=== PATIENT | male | born 1930 | race Caucasian/White ===

== ENCOUNTER 2019-01-02 06:22 | Inpatient (IN) | payer MEDICARE, BC ==
[2019-01-02] MEDS ORDERED: HEPARIN SODIUM,PORCINE 5,000 UNIT/ML 1 ML VIAL IV PRN (06:28)
[2019-01-02] MEDS ORDERED: AMIODARONE 360 MG in DEXTROSE 5% IN WATER 200 ML IV ONE ×2 (07:00)
[2019-01-02] MEDS: HEPARIN SOD,PORK IN 0.45% NACL 25,000 UNIT in 0.45% NACL 1 250ML.BAG IV SCH (07:02)
[2019-01-02 07:04] LABS: HCT 37.8 % (39.0-53.0); HGB 12.4 gm/dL (13.0-17.5); MCH 35.9 pg (25.0-35.0); MCHC 32.7 g/dL (31.0-37.0); MCV 109.8 fL (80.0-100.0); Macrocytosis Marked; Mean Platelet Volume 8.6; Platelet Count 148 k/uL (150-450); RBC 3.45 m/uL (4.30-5.90); RDW 14.7 % (11.5-15.5); WBC 15.4 k/uL (3.8-10.6)
--- NOTE | 2019-01-02 07:04 | ED ---
Chest Pain HPI - General Stated Complaint: Cardiac Transfer Time Seen by Provider: 01/02/19 06:26 - History of Present Illness Initial Comments: Doug is an 88-year-old gentleman who presents to the emergency department today via ambulance as a transfer from an outside facility. Patient presented to outside hospital with a complaint of chest pain and difficulty breathing. Upon assessment he was found to be in atrial fibrillation and RVR with heart r ate in the 130s, patient was noted to be mildly hypotensive he was initially started on Cardizem however his blood pressure decreased and decision was made to treat with fluids she was in giving calcium initiated amiodarone drip and given digoxin. Patient's heart rate decreased to the 80s to 100s his pressure remained somewhat soft but he is chest pain-free breathing better. Decision was made to transfer patient to our hospital for evaluation by his assembler lay ups. - Related Data Allergies Allergy/AdvReac Type Severity Reaction Status Date / Time No Known Allergies Allergy Verified 01/02/19 06:45 Review of Systems ROS Statement: Those systems with pertinent positive or pertinent negative responses have been documented in the HPI. ROS Other: All systems not noted in ROS Statement are negative. EKG Findings - EKG Comments: EKG Findings:: EKG obtained at 634am - rate 93, rhythm afib, normal axis, normal intervals, QRS 90, QTc 420, no acute ST elevations or depressions. No ischemia or infarction. General Exam - General Exam Comments Initial Comments: Physical Exam GENERAL: Patient is well-developed and well-nourished. Patient is nontoxic and well-hydrated and is in no distress. HENT: Normocephalic, Atraumatic. EYES: PERRL, EOMI PULMONARY: Unlabored respirations. CARDIOVASCULAR: Irregularly irregular ABDOMEN: Soft and nontender with normal bowel sounds. SKIN: Multiple bruises in multiple stages of healing over all extremities : Deferred NEUROLOGIC: Patient is alert and oriented x3. Moving all extremities spontaneously Very hard of hearing MUSCULOSKELETAL: Normal extremities with adequate strength and full range of motion. No lower extremity swelling or edema. No calf tenderness. PSYCHIATRIC: Normal psychiatric evaluation Course Vital Signs 01/02/19 06:53 Temperature 98.1 F Pulse Rate 91 Respiratory 16 Rate Blood Pressure 135/97 O2 Sat by Pulse 100 Oximetry Chest Pain [facility] Patient care was discussed with Transferring physician - new onset afib, on amiodarone Patient arrived, hemodynamically stable EKG Afib, no acute ST elevations or depressions Repeat labs ordered Patient care discussed with Dr Hurtado who accepts admission for new a-fib with RVR Critical Care Time Critical Care Time: Yes Total Critical Care Time: 15 Disposition Clinical Impression: Atrial fibrillation with RVR Disposition: ADMITTED IP TO THIS HOSP Condition: Stable Referrals: Rolando Williamson MD [Primary Care Provider] - 1-2 days
[2019-01-02 07:13] LABS: Albumin 3.1 g/dL (3.5-5.0); Calcium 8.8 mg/dL (8.4-10.2); Magnesium 2.5 mg/dL (1.6-2.3); Total Bilirubin 0.7 mg/dL (0.2-1.3); Total Protein 5.6 g/dL (6.3-8.2)
[2019-01-02 07:18] LABS: Potassium 5.7 mmol/L (3.5-5.1)
[2019-01-02 07:23] LABS: Prothrombin Time 10.6 sec (9.0-12.0)
[2019-01-02 07:25] LABS: Partial Thromboplastin Time 92.4 sec (22.0-30.0)
[2019-01-02 07:29] LABS: Band Neutrophils % 4 %; Large Platelets Present; Lymphocytes # (M) 0.92 k/uL (1.0-4.8); Monocytes # (M) 1.39 k/uL (0-1.0); Myelocytes # (M) 0.77 k/uL (0); Myelocytes % 5 %; Neutrophils % (M) 77 %; Nucleated Red Blood Cells 0 /100 WBC (0-0); Total Cells Counted 200
--- NOTE | 2019-01-02 10:34 | P.HPIM ---
History of Present Illness 88-year-old pleasant gentleman with known history of coronary artery disease and stents that were placed 5 years ago, came in with complaints of chest pain nonradiating along with difficulty breathing found to be in atrial fibrillation at the abdomen. It was seen in the [facility] subsequently transferred here patient was started on amiodarone drip and heparin. Patient uses metoprolol. Patient is not on any anticoagulation until now patient one time was told that he has irregular heart beat by a physician in [place]. Patient chest pain completely resolved with control of heart rate it was pressure-like sensation denied and diaphoresis nausea associated with that. Patient doesn't have any known history of congestive heart failure although I do not see any echo cardiac exam here patient is not in heart failure exacerbation at this time. Patient is presently fairly rate controlled on amiodarone. And actually appears to be sinus rhythm at this time. Patient has minimally elevated troponin of 0.5 the second set of troponin was ordered which is not available. Patient has elevated MCV because of his age a lot of B12 levels. Review of Systems REVIEW OF SYSTEMS: CONSTITUTIONAL: No fever, no malaise, no fatigue. HEENT: No recent visual problems or hearing problems. Denied any sore throat. CARDIOVASCULAR: No orthopnea, PND, no palpitations, no syncope. PULMONARY: no cough, no hemoptysis. GASTROINTESTINAL: No diarrhea, no nausea, no vomiting, no abdominal pain. NEUROLOGICAL: No headaches, no weakness, no numbness. HEMATOLOGICAL: Denies any bleeding or petechiae. GENITOURINARY: Denies any burning micturition, frequency, or urgency. MUSCULOSKELETAL/RHEUMATOLOGICAL: Denies any joint pain, swelling, or any muscle pain. ENDOCRINE: Denies any polyuria or polydipsia. The rest of the 14-point review of systems is negative. Past Medical History Past Medical History: Chest Pain / Angina, COPD, Hearing Disorder / Deafness, Prostate Disorder, Rheumatoid Arthritis (RA) History of Any Multi-Drug Resistant Organisms: None Reported Past Surgical History: Heart Catheterization With Stent, Orthopedic Surgery, Tonsillectomy Additional Past Surgical History / Comment(s): left hip orif back surgery Past Anesthesia/Blood Transfusion Reactions: No Reported Reaction Date of Last Stent Placement:: 2014 Past Psychological History: No Psychological Hx Reported Smoking Status: Former smoker Past Alcohol Use History: Heavy Additional Past Alcohol Use History / Comment(s): quit 1975 Past Drug Use History: None Reported - Past Family History Mother Family Medical History: No Reported History Father Family Medical History: No Reported History Medications and Allergies Home Medications Medication Instructions Recorded Confirmed Type Albuterol Nebulized [Ventolin 2.5 mg INHALATION RT-TID 01/02/19 01/02/19 History Nebulized] Aspirin [[place] Aspirin EC] 81 mg PO DAILY 01/02/19 01/02/19 History Budesonide/Formoterol Fumarate 2 puff INHALATION RT-BID 01/02/19 01/02/19 History [Symbicort 160-4.5 Mcg Inhaler] Cetirizine HCl 10 mg PO DAILY 01/02/19 01/02/19 History Finasteride [Proscar] 5 mg PO DAILY 01/02/19 01/02/19 History Ipratropium/Albuterol Sulfate 1 puff INHALATION RT-BID 01/02/19 01/02/19 History [Combivent Respimat Inhaler] Lisinopril [Zestril] 10 mg PO DAILY 01/02/19 01/02/19 History Metoprolol Tartrate [Lopressor] 25 mg PO BID 01/02/19 01/02/19 History Simvastatin 80 mg PO DAILY 01/02/19 01/02/19 History Tamsulosin [Flomax] 0.4 mg PO DAILY 01/02/19 01/02/19 History Vit C/E/Zn/Coppr/Lutein/Zeaxan 1 cap PO DAILY 01/02/19 01/02/19 History [Preservision Areds 2 Softgel] predniSONE 15 mg PO DAILY 01/02/19 01/02/19 History traMADol HCL [Ultram] 100 mg PO TID 01/02/19 01/02/19 History traZODone HCL 50 mg PO DAILY 01/02/19 01/02/19 History Allergies Allergy/AdvReac Type Severity Reaction Status Date / Time No Known Allergies Allergy Verified 01/02/19 07:47 Physical Exam Vitals: Vital Signs Temp Pulse Pulse Resp BP BP Pulse Ox 01/02/19 09:02 97.7 F 71 18 78/52 96 01/02/19 08:36 97.7 F 71 18 78/52 96 01/02/19 07:32 91 18 135/97 95 01/02/19 06:53 98.1 F 91 16 135/97 100 Intake and Output 01/01/19 01/02/19 01/02/19 22:59 06:59 14:59 Intake Total 3.75 Balance 3.75 Intake: Intake, IV Titration 3.75 Amount Heparin Sod,Pork in 0.45% 3.75 NaCl 25,000 unit In 0.45 % NaCl 1 250ml.bag @ 12 UNITS/KG/HR 8.655 mls/hr IV .Q24H [facility] Rx#: [id number] Other: Voiding Method Urinal Weight 72.121 kg PHYSICAL EXAMINATION: GENERAL: The patient is alert and oriented x3, not in any acute distress. Well developed, well nourished. HEENT: Pupils are round and equally reacting to light. EOMI. No scleral icterus. No conjunctival pallor. Normocephalic, atraumatic. No pharyngeal erythema. No thyromegaly. CARDIOVASCULAR: S1 and S2 present. No murmurs, rubs, or gallops. PULMONARY: Chest is clear to auscultation, no wheezing or crackles. ABDOMEN: Soft, nontender, nondistended, normoactive bowel sounds. No palpable organomegaly. MUSCULOSKELETAL: No joint swelling or deformity. EXTREMITIES: No cyanosis, clubbing, or pedal edema. NEUROLOGICAL: Gross neurological examination did not reveal any focal deficits. SKIN: No rashes. Results CBC & Chem 7: 01/02/19 06:42 01/02/19 06:42 Labs: Abnormal Lab Results - Last 24 Hours (Table) 01/02/19 01/02/19 01/02/19 Range/Units 06:42 06:42 06:42 WBC 15.4 H (3.8-10.6) k/uL RBC 3.45 L (4.30-5.90) m/uL Hgb 12.4 L (13.0-17.5) gm/dL Hct 37.8 L (39.0-53.0) % MCV 109.8 H (80.0-100.0) fL MCH 35.9 H (25.0-35.0) pg Plt Count 148 L (150-450) k/uL Neutrophils # (Manual) 12.40 H (1.3-7.7) k/uL Lymphocytes # (Manual) 0.92 L (1.0-4.8) k/uL Monocytes # (Manual) 1.39 H (0-1.0) k/uL Myelocytes # (Manual) 0.77 H (0) k/uL Macrocytosis Marked A APTT 92.4 H (22.0-30.0) sec Potassium 5.7 H (3.5-5.1) mmol/L BUN 50 H (9-20) mg/dL Glucose 125 H (74-99) mg/dL Magnesium 2.5 H (1.6-2.3) mg/dL Alkaline Phosphatase 27 L (38-126) U/L Troponin I (0.000-0.034) ng/mL Total Protein 5.6 L (6.3-8.2) g/dL Albumin 3.1 L (3.5-5.0) g/dL 01/02/19 Range/Units 06:42 WBC (3.8-10.6) k/uL RBC (4.30-5.90) m/uL Hgb (13.0-17.5) gm/dL Hct (39.0-53.0) % MCV (80.0-100.0) fL MCH (25.0-35.0) pg Plt Count (150-450) k/uL Neutrophils # (Manual) (1.3-7.7) k/uL Lymphocytes # (Manual) (1.0-4.8) k/uL Monocytes # (Manual) (0-1.0) k/uL Myelocytes # (Manual) (0) k/uL Macrocytosis APTT (22.0-30.0) sec Potassium (3.5-5.1) mmol/L BUN (9-20) mg/dL Glucose (74-99) mg/dL Magnesium (1.6-2.3) mg/dL Alkaline Phosphatase (38-126) U/L Troponin I 0.583 H* (0.000-0.034) ng/mL Total Protein (6.3-8.2) g/dL Albumin (3.5-5.0) g/dL Thrombosis Risk Factor Assmnt - Choose All That Apply Each Factor Represents 1 point: Abnormal pulmonary function (COPD) Each Risk Factor Represents 3 Points: Age 75 years or older Thrombosis Risk Factor Assessment Total Risk Factor Score: 4 Thrombosis Risk Factor Assessment Level: Moderate Risk Assessment and Plan Plan: -Chest pain and shortness of breath: He appears to be secondary to atrial fibrillation, continue with the amiodarone probably can be tapered down and in crease the metoprolol dose cardiology will evaluate the patient. Continue with heparin for now patient will need by mouth at anticoagulation with new anticoagulants. BNP will be obtained -Elevated troponins can be non-ST elevation microinfarction although most probably related to atrial fibrillation further management as per cardiology continue with beta farideh and aspirin. -COPD without any acute exacerbation -Benign prostatic hypertrophy -History of rheumatoid arthritis for which patient is on prednisone -Elevated MCV will obtain B12 levels
--- NOTE | 2019-01-02 13:14 | P.CRDCN ---
History of Present Illness Consult date: 01/02/19 Chief complaint: Chest pain History of present illness: This is a pleasant 88-year-old gentleman with a past medical history significant for coronary artery disease and prior coronary artery stenting with unknown details at this point, the patient stated that he used to follow-up with Dr. Dr. Mccarty with the last follow-up about 2 years ago according to him, as well as hypertension, and dyslipidemia, was admitted to the hospital with chest discomfort. The patient stated that he was in his usual state of health until yesterday when he was at home and suddenly started experiencing discomfort in the mid of the chest, as a sharp kind of discomfort, with radiation to his neck, shoulders, and teeth as well. He called ambulance and he was brought initially to emergency room at [facility] and subsequently he was transferred to [facility]. The patient was found to be in atrial fibrillation with RVR. The atrial fibrillation is new to him. He was started on amiodarone drip and he was also started on heparin drip. Since he has been admitted, he has been chest pain-free. The EKG showed atrial fibrillation was controlled heart rate. No ischemic ST or T-wave abnormalities noted. We have only one set of en zymes came in to be slightly abnormal. The chest x-ray did not show any acute abnormalities. Past Medical History Past Medical History: Chest Pain / Angina, COPD, Hearing Disorder / Deafness, Prostate Disorder, Rheumatoid Arthritis (RA) History of Any Multi-Drug Resistant Organisms: None Reported Past Surgical History: Heart Catheterization With Stent, Orthopedic Surgery, Tonsillectomy Additional Past Surgical History / Comment(s): left hip orif back surgery Past Anesthesia/Blood Transfusion Reactions: No Reported Reaction Date of Last Stent Placement:: 2014 Past Psychological History: No Psychological Hx Reported Smoking Status: Former smoker Past Alcohol Use History: Heavy Additional Past Alcohol Use History / Comment(s): quit 1975 Past Drug Use History: None Reported - Past Family History Mother Family Medical History: No Reported History Father Family Medical History: No Reported History Medications and Allergies Home Medications Medication Instructions Recorded Confirmed Type Albuterol Nebulized [Ventolin 2.5 mg INHALATION RT-TID 01/02/19 01/02/19 History Nebulized] Aspirin [[place] Aspirin EC] 81 mg PO DAILY 01/02/19 01/02/19 History Budesonide/Formoterol Fumarate 2 puff INHALATION RT-BID 01/02/19 01/02/19 History [Symbicort 160-4.5 Mcg Inhaler] Cetirizine HCl 10 mg PO DAILY 01/02/19 01/02/19 History Finasteride [Proscar] 5 mg PO DAILY 01/02/19 01/02/19 History Ipratropium/Albuterol Sulfate 1 puff INHALATION RT-BID 01/02/19 01/02/19 History [Combivent Respimat Inhaler] Lisinopril [Zestril] 10 mg PO DAILY 01/02/19 01/02/19 History Metoprolol Tartrate [Lopressor] 25 mg PO BID 01/02/19 01/02/19 History Simvastatin 80 mg PO DAILY 01/02/19 01/02/19 History Tamsulosin [Flomax] 0.4 mg PO DAILY 01/02/19 01/02/19 History Vit C/E/Zn/Coppr/Lutein/Zeaxan 1 cap PO DAILY 01/02/19 01/02/19 History [Preservision Areds 2 Softgel] predniSONE 15 mg PO DAILY 01/02/19 01/02/19 History traMADol HCL [Ultram] 100 mg PO TID 01/02/19 01/02/19 History traZODone HCL 50 mg PO DAILY 01/02/19 01/02/19 History Allergies Allergy/AdvReac Type Severity Reaction Status Date / Time No Known Allergies Allergy Verified 01/02/19 07:47 Physical Exam Vitals: Vital Signs Temp Pulse Pulse Resp BP BP Pulse Ox 01/02/19 12:08 97.6 F 76 16 101/57 95 01/02/19 09:02 97.7 F 71 18 78/52 96 01/02/19 08:36 97.7 F 71 18 78/52 96 01/02/19 07:32 91 18 135/97 95 01/02/19 06:53 98.1 F 91 16 135/97 100 Intake and Output 01/01/19 01/02/19 01/02/19 22:59 06:59 14:59 Intake Total 3.75 Output Total 600 Balance -596.25 Intake: Intake, IV Titration 3.75 Amount Heparin Sod,Pork in 0.45% 3.75 NaCl 25,000 unit In 0.45 % NaCl 1 250ml.bag @ 12 UNITS/KG/HR 8.655 mls/hr IV .Q24H [facility] Rx#: [id number] Output: Urine 600 Other: Voiding Method Urinal # Voids 1 Weight 72.121 kg - Constitutional General appearance: no acute distress - Respiratory Respiratory: bilateral: CTA - Cardiovascular Rhythm: irregularly irregular Heart sounds: normal: S1, S2 Results 01/02/19 06:42 01/02/19 06:42 Cardiac Enzymes 01/02/19 01/02/19 Range/Units 06:42 06:42 AST 39 (17-59) U/L Troponin I 0.583 H* (0.000-0.034) ng/mL Coagulation 01/02/19 01/02/19 Range/Units 06:42 12:18 PT 10.6 (9.0-12.0) sec APTT 92.4 H 66.5 H (22.0-30.0) sec CBC 01/02/19 Range/Units 06:42 WBC 15.4 H (3.8-10.6) k/uL RBC 3.45 L (4.30-5.90) m/uL Hgb 12.4 L (13.0-17.5) gm/dL Hct 37.8 L (39.0-53.0) % Plt Count 148 L (150-450) k/uL Comprehensive Metabolic Panel 01/02/19 Range/Units 06:42 Sodium 138 (137-145) mmol/L Potassium 5.7 H (3.5-5.1) mmol/L Chloride 107 (98-107) mmol/L Carbon Dioxide 28 (22-30) mmol/L BUN 50 H (9-20) mg/dL Creatinine 0.94 (0.66-1.25) mg/dL Glucose 125 H (74-99) mg/dL Calcium 8.8 (8.4-10.2) mg/dL AST 39 (17-59) U/L ALT 36 (21-72) U/L Alkaline Phosphatase 27 L (38-126) U/L Total Protein 5.6 L (6.3-8.2) g/dL Albumin 3.1 L (3.5-5.0) g/dL Current Medications Generic Name Dose Route Start Last Admin Trade Name Freq PRN Reason Stop Dose Admin Albuterol Sulfate 2.5 mg 01/02/19 13:00 Ventolin Nebulized INHALATION RT-TID [facility] Aspirin 81 mg 01/03/19 09:00 Aspirin PO DAILY [facility] Atorvastatin Calcium 40 mg 01/03/19 09:00 Lipitor PO DAILY [facility] Budesonide/Formoterol Fumarate 2 puff 01/02/19 20:00 Symbicort 160-4.5 Mcg Inhaler INHALATION RT-BID [facility] Finasteride 5 mg 01/03/19 09:00 Proscar PO DAILY [facility] Heparin Sodium (Porcine) 0 unit 01/02/19 06:28 Heparin IV PER PROTOCOL PRN Low PTT Protocol Amiodarone HCl 300 mg/ 250 mls @ 25 mls/hr 01/02/19 13:00 Dextrose/Water IV 01/03/19 06:59 .Q10H [facility] Protocol 0.5 MG/MIN Heparin Sodium/Sodium Chloride 250 mls @ 8.655 mls/hr 01/02/19 07:00 01/02/19 07:28 25,000 unit/ Sodium Chloride IV 10 units/kg/hr .Q24H [facility] 7.212 mls/hr Titration Protocol 12 UNITS/KG/HR Metoprolol Tartrate 25 mg 01/02/19 21:00 Lopressor PO BID [facility] Prednisone 10 mg 01/03/19 09:00 PO DAILY [facility] Tamsulosin HCl 0.4 mg 01/03/19 09:00 Flomax PO DAILY [facility] Tramadol HCl 50 mg 01/02/19 16:00 Ultram PO TID [facility] Intake and Output 01/01/19 01/02/19 01/02/19 22:59 06:59 14:59 Intake Total 3.75 Output Total 600 Balance -596.25 Intake: Intake, IV Titration 3.75 Amount Heparin Sod,Pork in 0.45% 3.75 NaCl 25,000 unit In 0.45 % NaCl 1 250ml.bag @ 12 UNITS/KG/HR 8.655 mls/hr IV .Q24H [facility] Rx#: [id number] Output: Urine 600 Other: Voiding Method Urinal # Voids 1 Weight 72.121 kg 01/02/19 06:42 01/02/19 06:42 Assessment and Plan Assessment: Assessment #1 atrial fibrillation with RVR. This is a newly diagnosis the patient #2 acute non-ST elevation myocardial infarction #3 coronary artery disease and prior stenting with unknown details #4 multiple comorbid conditions Plan #1 continue the IV heparin for anticoagulation #2 consider oral anticoagulation in the next 24 hours #3 the patient continues to be in atrial fibrillation, the heart rate is controlled at this point. #4 DC amiodarone IV and start the patient on amiodarone by mouth #5 follow-up with the serial cardiac enzymes. We'll consider conservative approach at this point, unless the patient developed chest pain or chest discomfort #6 obtain an echocardiogram was Doppler Thank you for allowing us participate in his care and we will continue following up with the patient
[2019-01-02] MEDS: ALBUTEROL NEBULIZED 2.5 MG/3 ML INHALATION SCH ×2 (13:32→18:45)
[2019-01-02] MEDS: AMIODARONE 300 MG in DEXTROSE 5% IN WATER 250 ML IV SCH ×4 (14:25→22:56)
[2019-01-02] MEDS: traMADol 50 MG TAB PO SCH ×2 (16:07→21:47)
[2019-01-02] MEDS ORDERED: predniSONE 10 MG TAB PO STA (16:31)
[2019-01-02] MEDS: SYMBICORT 160-4.5 MCG INHALER INHALATION SCH (18:45)
[2019-01-02] MEDS ORDERED: TEMAZEPAM 7.5 MG CAP PO PRN (20:28)
[2019-01-02] MEDS: METOPROLOL TARTRATE 25 MG TAB PO SCH (20:36)
[2019-01-03 03:19] VITALS: TEMP 98.2
[2019-01-03] MEDS ORDERED: AMIODARONE 200 MG TAB PO SCH (06:00)
[2019-01-03] MEDS: HEPARIN SOD,PORK IN 0.45% NACL 25,000 UNIT in 0.45% NACL 1 250ML.BAG IV SCH (06:44)
[2019-01-03 06:52] LABS: HCT 39.8 % (39.0-53.0); HGB 12.7 gm/dL (13.0-17.5); MCH 35.2 pg (25.0-35.0); MCHC 31.9 g/dL (31.0-37.0); MCV 110.5 fL (80.0-100.0); Macrocytosis Marked; Mean Platelet Volume 8.1; Platelet Count 156 k/uL (150-450); RDW 14.1 % (11.5-15.5); WBC 13.9 k/uL (3.8-10.6)
[2019-01-03 07:12] LABS: Calcium 8.7 mg/dL (8.4-10.2); Magnesium 2.4 mg/dL (1.6-2.3); Potassium 4.9 mmol/L (3.5-5.1)
[2019-01-03 07:33] LABS: Lymphocytes # (M) 1.11 k/uL (1.0-4.8); Metamyelocytes # (M) 0.14 k/uL (0); Metamyelocytes % 1 %; Myelocytes # (M) 0.42 k/uL (0); Myelocytes % 3 %; Neutrophils # (M) 11.54 k/uL (1.3-7.7); Neutrophils % (M) 83 %; Nucleated Red Blood Cells 0 /100 WBC (0-0); Total Cells Counted 200
[2019-01-03 07:35] LABS: Large Platelets Present
[2019-01-03 07:50] VITALS: RESP 16
[2019-01-03] MEDS: ALBUTEROL NEBULIZED 2.5 MG/3 ML INHALATION SCH (08:06)
[2019-01-03] MEDS: SYMBICORT 160-4.5 MCG INHALER INHALATION SCH (08:06)
[2019-01-03] MEDS: METOPROLOL TARTRATE 25 MG TAB PO SCH (08:26)
[2019-01-03] MEDS: traMADol 50 MG TAB PO SCH (08:26)
[2019-01-03] MEDS ORDERED: TAMSULOSIN 0.4 MG CAP.ER.24H PO SCH (09:00)
[2019-01-03] MEDS ORDERED: ATORVASTATIN 40 MG TAB PO SCH (09:00)
[2019-01-03] MEDS ORDERED: predniSONE 10 MG TAB PO SCH (09:00)
[2019-01-03] MEDS ORDERED: ASPIRIN 81 MG PO SCH (09:00)
[2019-01-03] MEDS ORDERED: FINASTERIDE 5 MG TAB PO SCH (09:00)
[2019-01-03] MEDS ORDERED: ASPIRIN 325 MG TAB PO SCH (09:00)
[2019-01-03 10:09] VITALS: BP 137/61; PULSE 64
[2019-01-03] MEDS ORDERED: CYANOCOBALAMIN 1,000 MCG/ML 1 ML VIAL IM ONE (10:36)
--- NOTE | 2019-01-03 10:36 | P.DS ---
Providers Date of admission: 01/02/19 06:48 Attending physician: Will Hurtado Consults: 01/02/19 06:47 Consult Physician Urgent Consulting Provider: [facility] Consult Reason/Comments: new afib rvr Do you want consulting provider notified?: Yes, Notify in am Primary care physician: Rolando Williamson MD Hospital Course: a 88-year-old pleasant gentleman came in with the atrial fibrillation new onset patient will be started on oral anti-coagulationand will be discharged today patient was started on amiodarone will taper it down. Awaiting echocardiogram before discharge patient also has elevated troponin secondary to atrial fibrillation. PHYSICAL EXAMINATION: GENERAL: The patient is alert and oriented x3, not in any acute distress. Well developed, well nourished. HEENT: Pupils are round and equally reacting to light. EOMI. No scleral icterus. No conjunctival pallor. Normocephalic, atraumatic. No pharyngeal erythema. No thyromegaly. CARDIOVASCULAR: S1 and S2 present. No murmurs, rubs, or gallops. PULMONARY: Chest is clear to auscultation, no wheezing or crackles. ABDOMEN: Soft, nontender, nondistended, normoactive bowel sounds. No palpable organomegaly. MUSCULOSKELETAL: No joint swelling or deformity. EXTREMITIES: No cyanosis, clubbing, or pedal edema. NEUROLOGICAL: Gross neurological examination did not reveal any focal deficits. SKIN: No rashes. Assessment and Plan Plan: -Chest pain and shortness of breath: He appears to be secondary to atrial fibrillation. -Elevated troponins possibility of non-ST elevation microinfarction type I is low -COPD without any acute exacerbation -Benign prostatic hypertrophy -History of rheumatoid arthritis for which patient is on prednisone -Elevated MCV It will level is low, rule out a B12 injection leukocytosis reactive without any evidence of infection Patient Condition at Discharge: Stable Plan - Discharge Summary Discharge Rx Participant: No New Discharge Prescriptions: New Apixaban [Eliquis] 5 mg PO BID #30 tab Amiodarone [Cordarone] 400 mg PO BID@0600,1800 #60 tab Continue traZODone HCL 50 mg PO DAILY Ipratropium/Albuterol Sulfate [Combivent Respimat Inhaler] 1 puff INHALATION RT-BID Budesonide/Formoterol Fumarate [Symbicort 160-4.5 Mcg Inhaler] 2 puff INHALATION RT-BID Albuterol Nebulized [Ventolin Nebulized] 2.5 mg INHALATION RT-TID Vit C/E/Zn/Coppr/Lutein/Zeaxan [Preservision Areds 2 Softgel] 1 cap PO DAILY Tamsulosin [Flomax] 0.4 mg PO DAILY Finasteride [Proscar] 5 mg PO DAILY Cetirizine HCl 10 mg PO DAILY traMADol HCL [Ultram] 100 mg PO TID predniSONE 15 mg PO DAILY Simvastatin 80 mg PO DAILY Metoprolol Tartrate [Lopressor] 25 mg PO BID Aspirin [[place] Aspirin EC] 81 mg PO DAILY Discontinued Lisinopril [Zestril] 10 mg PO DAILY Discharge Medication List Albuterol Nebulized [Ventolin Nebulized] 2.5 mg INHALATION RT-TID 01/02/19 [History] Aspirin [[place] Aspirin EC] 81 mg PO DAILY 01/02/19 [History] Budesonide/Formoterol Fumarate [Symbicort 160-4.5 Mcg Inhaler] 2 puff INHALATION RT-BID 01/02/19 [History] Cetirizine HCl 10 mg PO DAILY 01/02/19 [History] Finasteride [Proscar] 5 mg PO DAILY 01/02/19 [History] Ipratropium/Albuterol Sulfate [Combivent Respimat Inhaler] 1 puff INHALATION RT- BID 01/02/19 [History] Metoprolol Tartrate [Lopressor] 25 mg PO BID 01/02/19 [History] Simvastatin 80 mg PO DAILY 01/02/19 [History] Tamsulosin [Flomax] 0.4 mg PO DAILY 01/02/19 [History] Vit C/E/Zn/Coppr/Lutein/Zeaxan [Preservision Areds 2 Softgel] 1 cap PO DAILY 01/02/19 [History] predniSONE 15 mg PO DAILY 01/02/19 [History] traMADol HCL [Ultram] 100 mg PO TID 01/02/19 [History] traZODone HCL 50 mg PO DAILY 01/02/19 [History] Amiodarone [Cordarone] 400 mg PO BID@0600,1800 #60 tab 01/03/19 [Rx] Apixaban [Eliquis] 5 mg PO BID #30 tab 01/03/19 [Rx] Follow up Appointment(s)/Referral(s): Rolando Williamson MD [Primary Care Provider] - 3 Days Valentino Silver MD [STAFF PHYSICIAN] - 1 Week
[2019-01-03] MEDS ORDERED: APIXABAN 2.5 MG TABLET PO SCH (11:00)
--- NOTE | 2019-01-03 12:19 | ECHOF ---
Referral Reason:A.Fib MEASUREMENTS -------- HEIGHT: 182.9 cm WEIGHT: 71.7 kg BP: IVSd: 1.5 cm (0.6 - 1.1) LVIDd: 4.7 cm (3.9 - 5.3) LVPWd: 1.2 cm (0.6 - 1.1) IVSs: 1.8 cm LVIDs: 2.7 cm LVPWs: 1.5 cm LAESV Index (A-L): 47.86 ml/m Ao Diam: 3.5 cm (2.0 - 3.7) AV Cusp: 1.6 cm (1.5 - 2.6) LA Diam: 3.7 cm (2.7 - 3.8) MV EXCURSION: 15.618 mm (> 18.000) MV EF SLOPE: 75 mm/s (70 - 150) EPSS: 0.9 cm MV E Amadeo: 1.19 m/s MV DecT: 309 ms MV A Amadeo: 0.91 m/s MV E/A Ratio: 1.31 AR PHT: 429 ms RAP: 5.00 mmHg RVSP: 44.69 mmHg FINDINGS -------- Sinus rhythm. This was a technically adequate study. The left ventricular size is normal. There is mild concentric left ventricular hypertrophy. Overa ll left ventricular systolic function is low-normal with, an EF between 50 - 55 %. The right ventricle is normal in size. The left atrium is markedly dilated. LA is severely dilated >40 ml/m2 The right atrial size is normal. There is mild aortic valve sclerosis. There is mild aortic regurgitation. Mild mitral annular calcification present. [id number] mitral regurgitation is present. Po ssible pmvp not visulized well. Mild tricuspid regurgitation present. There is mild pulmonary hypertension. The right ventricular systolic pressure, as measured by Doppler, is 44.69mmHg. There is no pulmonic regurgitation present. The aortic root size is normal. IVC Not well visulized. There is no pericardial effusion. CONCLUSIONS -------- 1. This was a technically adequate study. 2. The left ventricular size is normal. 3. There is mild concentric left ventricular hypertrophy. 4. Overall left ventricular systolic function is low-normal with, an EF between 50 - 55 %. 5. The right ventricle is normal in size. 6. The left atrium is markedly dilated. 7. LA is severely dilated >40 ml/m2 8. The right atrial size is normal. 9. Interatrial Septum not well visulized. 10. There is mild aortic valve sclerosis. 11. There is mild aortic regurgitation. 12. Mild mitral annular calcification present. 13. [id number] mitral regurgitation is present. 14. Possible pmvp not visulized well. 15. Mild tricuspid regurgitation present. 16. There is mild pulmonary hypertension. 17. The right ventricular systolic pressure, as measured by Doppler, is 44.69mmHg. 18. There is no pulmonic regurgitation present. 19. The aortic root size is normal. 20. IVC Not well visulized. 21. There is no pericardial effusion. MECHANICAL INSPECTOR: Maira Nickerson RDCS
--- NOTE | 2019-01-03 12:46 | P.PN ---
Subjective Progress Note Date: 01/03/19 This is a pleasant 88-year-old gentleman with a past medical history significant for coronary artery disease and prior coronary artery stenting with unknown details at this point, the patient stated that he used to follow-up with Dr. Dr. Mccarty with the last follow-up about 2 years ago according to him, as well as hypertension, and dyslipidemia, was admitted to the hospital with chest discomfort. The patient stated that he was in his usual state of health until yesterday when he was at home and suddenly started experiencing discomfort in the mid of the chest, as a sharp kind of discomfort, with radiation to his neck, shoulders, and teeth as well. He called ambulance and he was brought initially to emergency room at [facility] and subsequently he was transferred to [facility]. The patient was found to be in atrial fibrillation with RVR. The atrial fibrillation is new to him. He was started on amiodarone drip and he was also started on heparin drip. Since he has been admitted, he has been chest pain-free. The EKG showed atrial fibrillation was controlled heart rate. No ischemic ST or T-wave abnormalities noted. We have only one set of enzymes came in to be slightly abnormal. The chest x-ray did not show any acute abnormalities. 01/03/2019 Patient was seen and examined this morning, currently in a normal sinus rhythm. Blood pressure 124/60 with a heart rate in the 70s, 93% on room air. white blood cell count 13.9, hemoglobin 12.7, platelet count 156. Sodium 140, potassium 4.9, BUN 38 and creatinine 0.9. We will discontinue the IV heparin today and start the patient on anticoagulation in the form of Eliquis. Echocardiogram with Doppler study revealed an normal left ventricular systolic function with moderate to severe mitral regurgitation. Objective - Vital Signs Vital signs: Vital Signs Temp 98.2 F 01/03/19 07:45 Pulse 64 01/03/19 10:08 Resp 16 01/03/19 07:45 BP 137/61 01/03/19 10:08 Pulse Ox 94 L 01/03/19 10:08 Intake & Output 01/02/19 01/03/19 01/03/19 18:59 06:59 18:59 Intake Total 233.75 1187.559 200 Output Total 1250 600 50 Balance -1016.25 587.559 150 Weight 72.1 kg Intake: IV 220 normal saline 220 Intake, IV Titration 3.75 167.559 Amount Heparin Sod,Pork in 0.45% 3.75 167.559 NaCl 25,000 unit In 0.45 % NaCl 1 250ml.bag @ 12 UNITS/KG/HR 8.655 mls/hr IV .Q24H [facility] Rx#: [id number] Oral 230 800 200 Output: Urine 1250 600 50 Other: Voiding Method Urinal Urinal Urinal # Voids 1 1 - Exam PHYSICAL EXAMINATION: GENERAL:88-year-old gentleman in no acute distress at the time of my examination HEENT: Head is atraumatic, normocephalic. Pupils equal, round. Sclera anic teric. Conjunctiva are clear. Mucous membranes of the mouth are moist. Neck is supple. There is no elevated jugular venous pressure.no carotid bruit is heard. HEART EXAMINATION: heart S1 and S2, systolic murmur is heard CHEST EXAMINATION:[ Lungs are clear to auscultation and precussion. No chest wall tenderness is noted on palpation or with deep breathing.] ABDOMEN: [ Soft, nontender. Bowel sounds are heard. No organomegaly noted]. EXTREMITIES:[ 2+ peripheral pulses with no evidence of peripheral edema and no calf tenderness noted]. NEUROLOGIC [patient is awake, alert and oriented X3 . - Labs CBC & Chem 7: 01/03/19 06:02 01/03/19 06:02 Labs: Abnormal Lab Results - Last 24 Hours (Table) 01/02/19 01/02/19 01/03/19 Range/Units 12:18 12:18 06:02 WBC 13.9 H (3.8-10.6) k/uL RBC 3.60 L (4.30-5.90) m/uL Hgb 12.7 L (13.0-17.5) gm/dL MCV 110.5 H (80.0-100.0) fL MCH 35.2 H (25.0-35.0) pg Neutrophils # (Manual) 11.54 H (1.3-7.7) k/uL Metamyelocytes # (Man) 0.14 H (0) k/uL Myelocytes # (Manual) 0.42 H (0) k/uL Macrocytosis Marked A APTT 66.5 H (22.0-30.0) sec BUN (9-20) mg/dL Magnesium (1.6-2.3) mg/dL Troponin I 0.781 H* (0.000-0.034) ng/mL 01/03/19 01/03/19 Range/Units 06:02 06:02 WBC (3.8-10.6) k/uL RBC (4.30-5.90) m/uL Hgb (13.0-17.5) gm/dL MCV (80.0-100.0) fL MCH (25.0-35.0) pg Neutrophils # (Manual) (1.3-7.7) k/uL Metamyelocytes # (Man) (0) k/uL Myelocytes # (Manual) (0) k/uL Macrocytosis APTT 56.1 H (22.0-30.0) sec BUN 38 H (9-20) mg/dL Magnesium 2.4 H (1.6-2.3) mg/dL Troponin I (0.000-0.034) ng/mL Assessment and Plan Plan: Assessment and Plan #1 atrial fibrillation with RVR. Paroxysmal. This is a newly diagnosis the patient #2 acute non-ST elevation myocardial infarction #3 coronary artery disease and prior stenting with unknown details #4 multiple comorbid conditions plan We will discontinue the IV Lasix today and start the patient on Eliquis. From our perspective he may be able to be discharged home once cleared by primary. We'll make him a follow-up appointment in the office post discharge. DNP note has been reviewed, I agree with a documented findings and plan of care. Patient was seen and examined.
== END 2019-01-03 13:02 | disposition home health service (06) | DRG 282 ==
LOC: EC 06:22 → 3SCARD 06:48
PROVIDERS: ADMIT Hospitalist; ATTEND Hospitalist
DX: I48.0 Paroxysmal atrial fibrillation (principal); I21.4 Non-ST elevation (NSTEMI) myocardial infarction; D72.829 Elevated white blood cell count, unspecified; H91.90 Unspecified hearing loss, unspecified ear; I25.10 Atherosclerotic heart disease of native coronary artery without angina pectoris; I34.0 Nonrheumatic mitral (valve) insufficiency; J44.9 Chronic obstructive pulmonary disease, unspecified; M06.9 Rheumatoid arthritis, unspecified; N40.0 Benign prostatic hyperplasia without lower urinary tract symptoms; Z79.51 Long term (current) use of inhaled steroids; Z79.899 Other long term (current) drug therapy; Z87.891 Personal history of nicotine dependence; Z95.5 Presence of coronary angioplasty implant and graft; I10 Essential (primary) hypertension; E78.5 Hyperlipidemia, unspecified
CPT/HCPCS: 36415; 80048; 80053; 80061; 82607; 83735; 83880; 84484; 85025; 85610; 85730; 93306; 94640; 94760; 96365; 96368; 99285